=== PATIENT | male | born 1975 ===

== ENCOUNTER 2019-06-02 22:45 | Emergency (ER) | payer BC ==
[~2019-06-02] VITALS: Ht 175.3 cm; Wt 91.0 kg
[2019-06-03] MEDS: IBUPROFEN 600MG TABLET PO ONE (00:04)
[2019-06-03] MEDS: HYDROCODONE/ACETAMINOPHEN 5/325MG TABLET PO ONE (00:04)
[2019-06-03 00:31] VITALS: BP 137/80
== END 2019-06-03 00:32 | disposition home or self-care (01) ==
LOC: ER 22:45
DX: S80.01XA Contusion of right knee, initial encounter (principal); X58.XXXA Exposure to other specified factors, initial encounter; M25.512 Pain in left shoulder; Y93.89 Activity, other specified; Y92.89 Other specified places as the place of occurrence of the external cause; Y99.8 Other external cause status
CPT/HCPCS: 73030; 73562; 99283